=== PATIENT | male | born 1945 | race Caucasian/White ===

== ENCOUNTER → 2023-10-22 12:49 | Outpatient (REF) | payer MEDICARE, OTHER, SELFPAY ==
[2023-10-22 15:49] LABS: Hemoglobin 13.6 g/dL (13.0-18.0)
[2023-10-22 16:02] LABS: Blood Urea Nitrogen 55 mg/dl (9-20); Calcium 9.7 mg/dl (8.4-10.2); Carbon Dioxide 27 mmol/L (22-30); Chloride 103 mmol/L (98-107); Glucose 95 mg/dl (70-99); Phosphorus 3.5 mg/dl (2.5-4.5); Potassium 4.6 mmol/L (3.5-5.1); Sodium 138 mmol/L (135-145); eGFR 24.32
[2023-10-22 16:13] LABS: NT-proBNP 638 pg/ml
[2023-10-24 10:59] LABS: Intact PTH 64.6 pg/ml (13.6-85.8)
== END ==
LOC: HWLAB 12:49
PROVIDERS: ATTENDING PHYSICIAN Specialist; FAMILY PHYSICIAN Family Medicine; REFERRING PHYSICIAN Urology
DX: N18.4 Chronic kidney disease, stage 4 (severe) (principal); I10 Essential (primary) hypertension; E11.9 Type 2 diabetes mellitus without complications
CPT/HCPCS: 36415; 80048; 83880; 83970; 84100; 85018

== ENCOUNTER → 2023-11-23 11:31 | Outpatient (REF) | payer MEDICARE, OTHER, SELFPAY ==
[2023-11-23 16:03] LABS: Urine Albumin Negative (Neg - Trace); Urine Bilirubin Negative (Negative); Urine Character Clear (Clear); Urine Color Yellow; Urine Glucose Negative (Negative); Urine Ketone Negative (Negative); Urine Leukocyte Negative (Negative); Urine Nitrite Negative (Negative); Urine Occult Blood Negative (Negative); Urine Urobilinogen Negative (Neg - 1+)
== END ==
LOC: HWLAB 11:31
PROVIDERS: ATTENDING PHYSICIAN Internal Medicine Infectious Disease; FAMILY PHYSICIAN Family Medicine; REFERRING PHYSICIAN Urology
DX: Z01.818 Encounter for other preprocedural examination (principal); N39.0 Urinary tract infection, site not specified
CPT/HCPCS: 81003; 87086

== ENCOUNTER → 2024-05-27 12:59 | Outpatient (REF) | payer MEDICARE, OTHER, SELFPAY ==
[2024-05-27 15:28] LABS: Hemoglobin 13.6 g/dL (13.0-18.0)
[2024-05-27 15:29] LABS: Blood Urea Nitrogen 58 mg/dl (9-20); Calcium 9.6 mg/dl (8.4-10.2); Carbon Dioxide 24 mmol/L (22-30); Chloride 104 mmol/L (98-107); Glucose 99 mg/dl (70-99); Phosphorus 3.3 mg/dl (2.5-4.5); Potassium 4.4 mmol/L (3.5-5.1); Sodium 140 mmol/L (135-145)
[2024-05-27 16:05] LABS: Protein/creatinine Ratio 0.4; Urine Protein 29 mg/dl
== END ==
LOC: HWLAB 12:59
PROVIDERS: ATTENDING PHYSICIAN Specialist; FAMILY PHYSICIAN Family Medicine
DX: N18.4 Chronic kidney disease, stage 4 (severe) (principal); I10 Essential (primary) hypertension; E11.9 Type 2 diabetes mellitus without complications
CPT/HCPCS: 36415; 80048; 82570; 83970; 84100; 84156; 85018

== ENCOUNTER → 2025-02-21 11:26 | Outpatient (REF) | payer MEDICARE, OTHER, SELFPAY ==
[2025-02-21 15:29] LABS: Hematocrit 37.6 % (39.0-52.0); Hemoglobin 12.5 g/dL (13.0-18.0)
[2025-02-21 15:50] LABS: Blood Urea Nitrogen 55 mg/dl (9-20); Calcium 9.4 mg/dl (8.4-10.2); Carbon Dioxide 21 mmol/L (22-30); Chloride 111 mmol/L (98-107); Glucose 84 mg/dl (70-99); Phosphorus 3.4 mg/dl (2.5-4.5); Potassium 4.6 mmol/L (3.5-5.1); Sodium 140 mmol/L (135-145); eGFR 25.18
[2025-02-21 16:03] LABS: Protein/creatinine Ratio 0.5; Urine Protein 35 mg/dl
[2025-02-22 16:49] LABS: Intact PTH 46.4 pg/ml (13.6-85.8)
== END ==
LOC: HWLAB 11:26
PROVIDERS: ATTENDING PHYSICIAN Specialist; FAMILY PHYSICIAN Family Medicine
DX: N18.4 Chronic kidney disease, stage 4 (severe) (principal); I10 Essential (primary) hypertension; R80.1 Persistent proteinuria, unspecified
CPT/HCPCS: 36415; 80048; 82570; 83970; 84100; 84156; 85014; 85018

== ENCOUNTER → 2025-07-13 13:27 | Outpatient (REF) | payer MEDICARE, OTHER, SELFPAY ==
[2025-07-13 16:09] LABS: Urine Character Clear (Clear)
[2025-07-13 16:17] LABS: Urine Squamous Cell 0-2 /LPF (Few)
[2025-07-13 16:18] LABS: Urine White Cell 90-100 /HPF (0-5)
== END ==
LOC: HWLAB 13:27
PROVIDERS: ATTENDING PHYSICIAN Urology; FAMILY PHYSICIAN Family Medicine
DX: N39.0 Urinary tract infection, site not specified (principal)
CPT/HCPCS: 81003; 81015; 87077; 87086; 87186

== ENCOUNTER → 2025-07-18 13:36 | Outpatient (REF) | payer MEDICARE, OTHER, SELFPAY ==
[2025-07-18 16:01] LABS: Blood Urea Nitrogen 65 mg/dl (9-20); Calcium 9.6 mg/dl (8.4-10.2); Carbon Dioxide 23 mmol/L (22-30); Chloride 104 mmol/L (98-107); Glucose 106 mg/dl (70-99); Potassium 4.4 mmol/L (3.5-5.1); Sodium 135 mmol/L (135-145); eGFR 24.02
== END ==
LOC: HWLAB 13:36
PROVIDERS: ATTENDING PHYSICIAN Specialist; FAMILY PHYSICIAN Family Medicine
DX: N18.4 Chronic kidney disease, stage 4 (severe) (principal)
CPT/HCPCS: 36415; 80048; 83970; 84100

== ENCOUNTER → 2025-08-02 13:31 | Outpatient (REF) | payer MEDICARE, OTHER, SELFPAY ==
[2025-08-02 14:41] LABS: Urine Character Clear (Clear)
[2025-08-02 14:52] LABS: Urine Red Blood Cell 30-40 /HPF (0-2); Urine Squamous Cell 0-2 /LPF (Few); Urine White Cell 40-50 /HPF (0-5)
== END ==
LOC: REG 13:31
PROVIDERS: ATTENDING PHYSICIAN Family Medicine
DX: N39.0 Urinary tract infection, site not specified (principal)
CPT/HCPCS: 81003; 81015; 87077; 87086

== ENCOUNTER → 2025-08-21 13:24 | Outpatient (REF) | payer MEDICARE, OTHER, SELFPAY ==
[2025-08-21 14:47] LABS: Urine Character Cloudy (Clear)
[2025-08-21 15:09] LABS: Urine White Cell >100 /HPF (0-5)
== END ==
LOC: REG 13:24
PROVIDERS: ATTENDING PHYSICIAN Family Medicine
DX: N39.0 Urinary tract infection, site not specified (principal)
CPT/HCPCS: 81003; 81015; 87077; 87086; 87186